=== PATIENT | female | born 1960 | race Caucasian/White ===

== ENCOUNTER → 2017-08-15 | Outpatient (CLI) | payer BC ==
[~2017-08-15] MED LIST: ACTOS 45MG45 MG/TAB PO; ALLEGRA180 MG PO; CALCIUM CITRATE1 TA5 PO; CEPHALEXIN500 M1 PO; DUO-KAPS1 CAP PO; FERROUS SU325 MG/TAB PO; FORTAMET1000 MG PO; GLUCOPHAGE500 MG/TAB PO; GLUCOTROL10 MG PO; LEVEMIR FLEXPEN SQ; LIPITOR40 MG PO; LOTREL PO; MEDROXYPROGESTERONE PO; METFORMIN HCL1000 MG PO; NORCO 325 MG-51 TAB PO; NORVASC 10MG10 MG PO; SINGULAIR10 MG PO; SYNTHROID0.1 MG/TAB PO; ZESTRIL40 MG PO; ZOCOR 40MG40 MG PO
== END ==
LOC: SUN.DIA 14:26
DX: E11.9 Type 2 diabetes mellitus without complications (principal); Z79.4 Long term (current) use of insulin; E78.5 Hyperlipidemia, unspecified; I10 Essential (primary) hypertension; E66.9 Obesity, unspecified; Z68.36 Body mass index [BMI] 36.0-36.9, adult; Z71.3 Dietary counseling and surveillance
CPT/HCPCS: G0108

== ENCOUNTER → 2017-08-17 | Outpatient (CLI) | payer BC | LOC: SUN.DIA 16:26 | DX: E11.9 Type 2 diabetes mellitus without complications (principal); Z79.4 Long term (current) use of insulin; E78.5 Hyperlipidemia, unspecified; I10 Essential (primary) hypertension; E66.9 Obesity, unspecified; Z71.3 Dietary counseling and surveillance | CPT/HCPCS: G0109 ==

== ENCOUNTER → 2017-08-24 | Outpatient (CLI) | payer BC | LOC: SUN.DIA 15:20 | DX: E11.9 Type 2 diabetes mellitus without complications (principal); Z79.4 Long term (current) use of insulin; E78.5 Hyperlipidemia, unspecified; I10 Essential (primary) hypertension; E66.9 Obesity, unspecified; Z71.3 Dietary counseling and surveillance | CPT/HCPCS: G0109 ==

== ENCOUNTER → 2017-08-31 | Outpatient (CLI) | payer BC | LOC: SUN.DIA 13:34 | DX: E11.9 Type 2 diabetes mellitus without complications (principal); Z79.4 Long term (current) use of insulin; E78.5 Hyperlipidemia, unspecified; I10 Essential (primary) hypertension; E66.9 Obesity, unspecified; Z71.3 Dietary counseling and surveillance | CPT/HCPCS: G0109 ==

== ENCOUNTER → 2017-08-31 | Outpatient (CLI) | payer BC | LOC: SUN.DIA 14:05 | DX: E11.9 Type 2 diabetes mellitus without complications (principal); Z79.4 Long term (current) use of insulin; E78.5 Hyperlipidemia, unspecified; I10 Essential (primary) hypertension; E66.9 Obesity, unspecified; Z71.3 Dietary counseling and surveillance | CPT/HCPCS: G0108 ==

== ENCOUNTER → 2017-09-07 | Outpatient (CLI) | payer BC | LOC: SUN.DIA 15:52 | DX: E11.9 Type 2 diabetes mellitus without complications (principal); Z79.4 Long term (current) use of insulin; E78.5 Hyperlipidemia, unspecified; I10 Essential (primary) hypertension; E66.9 Obesity, unspecified; Z71.3 Dietary counseling and surveillance | CPT/HCPCS: G0109 ==

== ENCOUNTER → 2017-09-28 | Outpatient (CLI) | payer BC | LOC: SUN.DIA 08:56 | DX: E11.9 Type 2 diabetes mellitus without complications (principal); Z79.4 Long term (current) use of insulin; E78.5 Hyperlipidemia, unspecified; I10 Essential (primary) hypertension; E66.9 Obesity, unspecified; Z68.35 Body mass index [BMI] 35.0-35.9, adult; Z71.3 Dietary counseling and surveillance | CPT/HCPCS: G0108 ==

== ENCOUNTER → 2017-11-23 | Outpatient (CLI) | payer BC | LOC: SUN.DIA 11:31 | DX: E11.9 Type 2 diabetes mellitus without complications (principal); Z79.4 Long term (current) use of insulin; E78.5 Hyperlipidemia, unspecified; I10 Essential (primary) hypertension; E66.9 Obesity, unspecified; Z68.34 Body mass index [BMI] 34.0-34.9, adult; Z71.3 Dietary counseling and surveillance | CPT/HCPCS: G0108 ==

== ENCOUNTER → 2018-04-11 | Outpatient (CLI) | payer BC | LOC: SUN.DIA 03-08 09:34 | DX: E11.9 Type 2 diabetes mellitus without complications (principal); E78.5 Hyperlipidemia, unspecified; I10 Essential (primary) hypertension; E66.9 Obesity, unspecified | CPT/HCPCS: G0108 ==

== ENCOUNTER → 2018-07-04 | Outpatient (CLI) | payer BC | LOC: SUN.DIA 06-13 14:17 | DX: E11.9 Type 2 diabetes mellitus without complications (principal); E78.5 Hyperlipidemia, unspecified; I10 Essential (primary) hypertension; E66.9 Obesity, unspecified | CPT/HCPCS: G0108 ==

== ENCOUNTER → 2018-07-21 | Outpatient (CLI) | payer BC | LOC: MC.RAD 14:43 | DX: Z12.31 Encounter for screening mammogram for malignant neoplasm of breast (principal) ==

== ENCOUNTER 2021-09-09 14:30 | Outpatient (RCR) | payer BC | END 2021-09-12 | LOC: PT.GENESIS | DX: S46.812A Strain of other muscles, fascia and tendons at shoulder and upper arm level, left arm, initial encounter (principal); M25.511 Pain in right shoulder; G89.29 Other chronic pain; R29.898 Other symptoms and signs involving the musculoskeletal system ==

== ENCOUNTER 2021-10-07 14:30 | Outpatient (RCR) | payer BC | END 2021-10-13 | disposition home or self-care (01) | LOC: PT.GENESIS | DX: S46.812D Strain of other muscles, fascia and tendons at shoulder and upper arm level, left arm, subsequent encounter (principal); M25.511 Pain in right shoulder; G89.29 Other chronic pain; X58.XXXD Exposure to other specified factors, subsequent encounter ==

== ENCOUNTER 2021-11-10 14:28 | Outpatient (RCR) | payer BC | END 2021-11-12 | disposition home or self-care (01) | LOC: PT.GENESIS | DX: S46.812A Strain of other muscles, fascia and tendons at shoulder and upper arm level, left arm, initial encounter (principal); M25.511 Pain in right shoulder; G89.29 Other chronic pain; R29.898 Other symptoms and signs involving the musculoskeletal system ==

== ENCOUNTER 2021-12-04 13:00 | Outpatient (RCR) | payer BC | END 2021-12-13 | disposition home or self-care (01) | LOC: PT.GENESIS | DX: S46.812A Strain of other muscles, fascia and tendons at shoulder and upper arm level, left arm, initial encounter (principal); M25.511 Pain in right shoulder ==

== ENCOUNTER 2021-12-15 14:26 | Outpatient (RCR) | payer BC | END 2021-12-30 09:02 | disposition still patient (30) | LOC: PT.GENESIS 14:26 | DX: S46.812D Strain of other muscles, fascia and tendons at shoulder and upper arm level, left arm, subsequent encounter (principal); M25.511 Pain in right shoulder; G89.29 Other chronic pain; R29.898 Other symptoms and signs involving the musculoskeletal system; X58.XXXD Exposure to other specified factors, subsequent encounter ==

== ENCOUNTER → 2023-12-14 | Outpatient (RCR) | payer BC | LOC: PT.GENESIS | DX: M25.561 Pain in right knee (principal) ==